=== PATIENT | male | born 1970 | race African-American/Black ===

== ENCOUNTER 2016-04-26 14:06 | Outpatient (RCR) | payer MEDICARE, OTHER ==
[~2016-04-26] VITALS: Ht 193 cm; Wt 122.5 kg
[~2016-04-26 14:06] MED LIST: AUGMENTIN 875-1 EAC1 ORAL; BENAZEPRIL-HCT1 EAC1 ORAL; CARVEDILOL12.5 MG ORAL; DOXYCYCLINE HY100 M6 PO; HYDROCODON-ACE1 EA15 ORAL; LIPITOR10 MG ORAL; MULTIVITAMINS1 EA11 ORAL; NASONEX17 GM NASAL; NORCO 10/3251 EA ORAL; NORVASC5 MG ORAL
== END 2016-05-17 | disposition home or self-care (01) ==
LOC: WCC 14:06
DX: L97.512 Non-pressure chronic ulcer of other part of right foot with fat layer exposed (principal); E11.621 Type 2 diabetes mellitus with foot ulcer; G99.0 Autonomic neuropathy in diseases classified elsewhere; E08.42 Diabetes mellitus due to underlying condition with diabetic polyneuropathy; I10 Essential (primary) hypertension
CPT/HCPCS: G0463 ×2

== ENCOUNTER 2016-11-08 13:51 | Outpatient (RCR) | payer MEDICARE, OTHER | END 2016-11-14 | disposition home or self-care (01) | LOC: WCC 13:51 | DX: L97.512 Non-pressure chronic ulcer of other part of right foot with fat layer exposed (principal); E08.42 Diabetes mellitus due to underlying condition with diabetic polyneuropathy; G99.0 Autonomic neuropathy in diseases classified elsewhere; E11.621 Type 2 diabetes mellitus with foot ulcer; Z89.422 Acquired absence of other left toe(s); Z89.421 Acquired absence of other right toe(s); E11.42 Type 2 diabetes mellitus with diabetic polyneuropathy; L03.115 Cellulitis of right lower limb; Z98.84 Bariatric surgery status; I10 Essential (primary) hypertension | CPT/HCPCS: G0463 ==

== ENCOUNTER 2016-11-15 14:00 | Outpatient (RCR) | payer MEDICARE, OTHER | END 2016-12-15 | disposition home or self-care (01) | LOC: WCC 14:00 | DX: L97.512 Non-pressure chronic ulcer of other part of right foot with fat layer exposed (principal); E08.42 Diabetes mellitus due to underlying condition with diabetic polyneuropathy; G99.0 Autonomic neuropathy in diseases classified elsewhere; E11.621 Type 2 diabetes mellitus with foot ulcer; E11.42 Type 2 diabetes mellitus with diabetic polyneuropathy; Z89.421 Acquired absence of other right toe(s); Z89.422 Acquired absence of other left toe(s); Z98.84 Bariatric surgery status | CPT/HCPCS: 11042; G0463 ==

== ENCOUNTER 2017-01-11 09:00 | Outpatient (RCR) | payer MEDICARE, OTHER | END 2017-01-14 | disposition home or self-care (01) | LOC: WCC 09:00 | DX: L97.512 Non-pressure chronic ulcer of other part of right foot with fat layer exposed (principal); E08.42 Diabetes mellitus due to underlying condition with diabetic polyneuropathy; G99.0 Autonomic neuropathy in diseases classified elsewhere; E11.621 Type 2 diabetes mellitus with foot ulcer; E11.42 Type 2 diabetes mellitus with diabetic polyneuropathy; Z89.421 Acquired absence of other right toe(s); Z89.422 Acquired absence of other left toe(s); Z98.84 Bariatric surgery status; I10 Essential (primary) hypertension; Z80.0 Family history of malignant neoplasm of digestive organs | CPT/HCPCS: 11042 ==

== ENCOUNTER 2017-01-17 14:30 | Outpatient (RCR) | payer MEDICARE, OTHER | END 2017-02-14 | disposition home or self-care (01) | LOC: WCC 14:30 | DX: L97.512 Non-pressure chronic ulcer of other part of right foot with fat layer exposed (principal); E11.621 Type 2 diabetes mellitus with foot ulcer; G99.0 Autonomic neuropathy in diseases classified elsewhere; E08.42 Diabetes mellitus due to underlying condition with diabetic polyneuropathy; Z89.422 Acquired absence of other left toe(s); Z89.421 Acquired absence of other right toe(s); E11.42 Type 2 diabetes mellitus with diabetic polyneuropathy; Z98.84 Bariatric surgery status; I10 Essential (primary) hypertension | CPT/HCPCS: 11043; 87070; 87181; 87205; G0463 ==

== ENCOUNTER 2017-01-27 12:36 | Outpatient (CLI) | payer MEDICARE, OTHER ==
--- NOTE | 2017-01-27 13:56 | Diagnostic Imaging Report ---
Indication: Pain Comparison: None Findings: 3 views of the right foot were obtained. Transmetatarsal amputation noted. Amputation site is unremarkable. There is no soft tissue gas or obvious erosion. Impression: No plain film evidence for osteomyelitis.
== END 2017-01-27 14:36 | disposition home or self-care (01) ==
LOC: RAD 12:36
DX: L08.9 Local infection of the skin and subcutaneous tissue, unspecified (principal)

== ENCOUNTER 2017-05-16 10:40 | Outpatient (CLI) | payer MEDICARE, OTHER ==
--- NOTE | 2017-05-16 11:25 | Diagnostic Imaging Report ---
Indication: Reason For Exam: COUGH Technique: 2 views of the chest Comparison: 10/26/2015. Findings: Lungs and pleural spaces are clear. Heart size is normal. Bones are unremarkable. Calcified granulomatous lymph nodes are again seen in the right paratracheal region. The heart size is normal. Surgical clips are seen in the region of the gastroesophageal junction. Impression: No acute process
== END 2017-05-16 12:40 | disposition home or self-care (01) ==
LOC: RAD 10:40
DX: Z01.812 Encounter for preprocedural laboratory examination (principal); R05 Cough
CPT/HCPCS: 71046

== ENCOUNTER 2017-06-27 13:22 | Outpatient (RCR) | payer MEDICARE, OTHER | END 2017-07-15 | disposition home or self-care (01) | LOC: WCC 13:22 | DX: L97.514 Non-pressure chronic ulcer of other part of right foot with necrosis of bone (principal); L97.522 Non-pressure chronic ulcer of other part of left foot with fat layer exposed; S90.822D Blister (nonthermal), left foot, subsequent encounter; L03.116 Cellulitis of left lower limb; E11.42 Type 2 diabetes mellitus with diabetic polyneuropathy; E08.621 Diabetes mellitus due to underlying condition with foot ulcer; Z98.84 Bariatric surgery status; Z80.0 Family history of malignant neoplasm of digestive organs; Z83.3 Family history of diabetes mellitus | CPT/HCPCS: 87070; 87181; 87205; G0463 ==

== ENCOUNTER 2017-07-04 15:35 | Outpatient (CLI) | payer MEDICARE, OTHER ==
--- NOTE | 2017-07-05 08:58 | Diagnostic Imaging Report ---
Indication: Nonhealing wound right foot stump, history of diabetes Technique: Sagittal, coronal, and axial T 1 fast spin echo and fast spin echo STIR images obtained of the right hindfoot Comparison: 01/14/2016 Findings: Again demonstrated is evidence of prior transmetatarsal amputation. There is diffuse edema of the subcutaneous fat, most pronounced in the region of the stump. The amount of soft tissue edema is actually slightly less extensive than on the prior exam. No focal drainable collection demonstrated. Foci of signal void within the soft tissues of the stomach appear very similar to the previous exam. Stability of this finding over time makes it unlikely that these represent air bubbles; may represent foci of heterotopic ossification or scar tissue There is interim development of high STIR signal within the fifth metatarsal stump. There is more subtle diminished T1 signal within the fifth metatarsal stump. Abnormal STIR signal is seen within the distal aspect of the fourth metatarsal stump, without definite T1 abnormality. However, the amount of increased STIR signal is actually less than what was seen on the previous study. Similarly, there is increased STIR signal within the third metatarsal stump without corresponding T1 abnormality. This was also demonstrated previously and is decreased on the current exam. There is only questionable STIR signal abnormality of the tip of the second metatarsal stump, markedly diminished from the prior exam. No associated T1 signal abnormality. Equivocal peripheral STIR signal abnormality is seen within the first metatarsal stump, in retrospect possibly evident previously but unchanged. No associated T1 signal abnormality demonstrated. Minimal increased STIR signal in the calcaneus below the subtalar joint probably represents stress reaction. Impression: Abnormal T1 and STIR signal in the distal aspect of the fifth metatarsal stump with evidence of surrounding soft tissue cellulitis is suspicious for acute osteomyelitis STIR signal abnormalities of the first, second, third, and fourth metatarsal stumps without T1 signal abnormality are nonspecific, may be reactive secondary to surrounding inflammation versus early/mild acute osteomyelitis. Note, however, that these STIR signal abnormalities have actually diminished since previous study of 01/14/2016, making it less likely that these are due to osteomyelitis Areas of signal void within the soft tissues of the stump could represent gas bubbles, particularly given clinical history of penetrating ulcer. However, these appear very similar to the previous study and therefore more likely represent another process such as scar tissue or heterotopic bone formation No evidence of drainable soft tissue abscess Findings discussed by phone with Dr. Corley at the time of interpretation
== END 2017-07-04 17:35 | disposition home or self-care (01) ==
LOC: MRI 15:35
DX: M86.9 Osteomyelitis, unspecified (principal); E11.9 Type 2 diabetes mellitus without complications
CPT/HCPCS: 73721; 87070; 87181; 87205; G0463

== ENCOUNTER 2017-07-18 11:41 | Outpatient (RCR) | payer MEDICARE, OTHER ==
[~2017-07-18] VITALS: Ht 193 cm; Wt 115.7 kg
[2017-08-11] MEDS ORDERED: Lidocaine 4% Top Soln 50ml TOPIC ONE (12:45)
== END 2017-08-14 | disposition home or self-care (01) ==
LOC: WCC 11:41
DX: L97.514 Non-pressure chronic ulcer of other part of right foot with necrosis of bone (principal); L97.522 Non-pressure chronic ulcer of other part of left foot with fat layer exposed; S90.822D Blister (nonthermal), left foot, subsequent encounter; E11.42 Type 2 diabetes mellitus with diabetic polyneuropathy; E08.621 Diabetes mellitus due to underlying condition with foot ulcer; M86.171 Other acute osteomyelitis, right ankle and foot; I10 Essential (primary) hypertension; Z98.84 Bariatric surgery status
CPT/HCPCS: 11044; G0463

== ENCOUNTER 2017-08-15 10:21 | Outpatient (RCR) | payer MEDICARE, OTHER ==
[~2017-08-15] VITALS: Ht 193 cm; Wt 115.7 kg
[2017-08-24] MEDS ORDERED: Lidocaine 4% Top Soln 50ml TOPIC ONE (16:45)
== END 2017-09-14 | disposition home or self-care (01) ==
LOC: WCC 10:21
DX: L97.514 Non-pressure chronic ulcer of other part of right foot with necrosis of bone (principal); L97.522 Non-pressure chronic ulcer of other part of left foot with fat layer exposed; S90.822D Blister (nonthermal), left foot, subsequent encounter; E11.42 Type 2 diabetes mellitus with diabetic polyneuropathy; E08.621 Diabetes mellitus due to underlying condition with foot ulcer; M86.171 Other acute osteomyelitis, right ankle and foot; X58.XXXD Exposure to other specified factors, subsequent encounter; L97.515 Non-pressure chronic ulcer of other part of right foot with muscle involvement without evidence of necrosis; Z98.84 Bariatric surgery status; E11.9 Type 2 diabetes mellitus without complications; I10 Essential (primary) hypertension
CPT/HCPCS: G0463 ×4

== ENCOUNTER 2017-11-20 13:01 | Outpatient (CLI) | payer MEDICARE, OTHER ==
--- NOTE | 2017-11-20 15:51 | Diagnostic Imaging Report ---
Indication: Cough Technique: One view of the chest Comparison: 05/16/2017 Findings: Lungs and pleural spaces are clear. Heart size is normal. Surgical clips are seen in the epigastric region. Calcifications, likely granulomatous lymph nodes, are seen in the right side of the upper mediastinum. No significant interim change Impression: No acute process
== END 2017-11-20 15:01 | disposition home or self-care (01) ==
LOC: RAD 13:01
DX: Z01.812 Encounter for preprocedural laboratory examination (principal); R05 Cough
CPT/HCPCS: 71046

== ENCOUNTER 2017-12-19 14:10 | Outpatient (RCR) | payer MEDICARE, OTHER | END 2018-01-14 | disposition home or self-care (01) | LOC: WCC 14:10 | DX: L97.512 Non-pressure chronic ulcer of other part of right foot with fat layer exposed (principal); E11.621 Type 2 diabetes mellitus with foot ulcer; G99.0 Autonomic neuropathy in diseases classified elsewhere; E08.42 Diabetes mellitus due to underlying condition with diabetic polyneuropathy; I10 Essential (primary) hypertension; Z98.84 Bariatric surgery status | CPT/HCPCS: 11043; 11046; 87070; 87181; 87205 ==

== ENCOUNTER 2018-01-15 12:44 | Outpatient (RCR) | payer MEDICARE, OTHER | END 2018-02-14 | disposition home or self-care (01) | LOC: WCC 12:44 | DX: L97.512 Non-pressure chronic ulcer of other part of right foot with fat layer exposed (principal); E11.621 Type 2 diabetes mellitus with foot ulcer; G99.0 Autonomic neuropathy in diseases classified elsewhere; E08.42 Diabetes mellitus due to underlying condition with diabetic polyneuropathy; Z98.84 Bariatric surgery status; I10 Essential (primary) hypertension | CPT/HCPCS: 11042; 11043; 11045; 87070; 87181; 87205 ==

== ENCOUNTER 2018-02-20 12:43 | Outpatient (RCR) | payer MEDICARE, OTHER | END 2018-03-16 | disposition home or self-care (01) | LOC: WCC 12:43 | DX: L97.512 Non-pressure chronic ulcer of other part of right foot with fat layer exposed (principal); E08.42 Diabetes mellitus due to underlying condition with diabetic polyneuropathy; G99.0 Autonomic neuropathy in diseases classified elsewhere; E11.621 Type 2 diabetes mellitus with foot ulcer; Z89.422 Acquired absence of other left toe(s); Z89.421 Acquired absence of other right toe(s); E11.42 Type 2 diabetes mellitus with diabetic polyneuropathy; Z98.84 Bariatric surgery status; E11.9 Type 2 diabetes mellitus without complications; I10 Essential (primary) hypertension | CPT/HCPCS: G0463 ==

== ENCOUNTER 2018-05-08 22:04 | Emergency (ER) | payer MEDICARE, OTHER ==
[~2018-05-08] VITALS: Ht 193 cm; Wt 113.4 kg
--- NOTE | 2018-05-08 22:35 | NUR ---
ED Nurse Note: x-rays taken at bedside.
[2018-05-08] MEDS ORDERED: Bacitracin Oint UD TOPIC ONE (22:45)
--- NOTE | 2018-05-08 22:47 | NUR ---
ED Nurse Note: Patient walk in c/o right foot pain following slip and fall in shower at 1945. Patient AOx4, VSS, ambulatory with steady gait, no s/s of acute distress noted at this time. Patient has all 5 toes amputated from right foot due to diabetes. Patient has wound on bottom of right foot r/t diabetes. Patient reports 7/10 pain. Patient seen by ROBERTOD at bedside.
[2018-05-08] MEDS ORDERED: HYDROcodone/Acetamin 5/325 tab ONE (23:13)
[2018-05-08] MEDS ORDERED: HYDROcodone/Acetamin 5/325 tab ORAL ONE (23:15)
--- NOTE | 2018-05-08 23:15 | NUR ---
ED Nurse Note: Bacitracin and bandages applied to wound on right foot.
[2018-05-08] MEDS ORDERED: CIPROFLOXACIN500 M2 ORAL (23:20)
--- NOTE | 2018-05-08 23:20 | Emergency Room Report ---
History of Present Illness General Chief Complaint: Lower Extremity Injury Source: Patient Present Illness HPI Is a 48-year-old male with a history of diabetes with a trans-metatarsal indication of his right foot. He has low nonhealing ulcer. It was doing better until tonight. He tripped and kicked his foot against the wall. There is some bleeding from the wound. Pain is 8 out of 10. Worse with walking. No other injury. Did not pass out. Allergies: Coded Allergies: No Known Allergies (Verified , 08/19/14) Patient History Past Medical History: see triage record, old chart reviewed, DM, HTN Past Surgical History: other Pertinent Family History: none Social History: Denies: smoking Immunizations: other Reviewed Nursing Documentation: PMH: Agreed; PSxH: Agreed Nursing Documentation-PMH Hx Cardiac Problems: Yes Hx Hypertension: Yes Hx Diabetes: Yes - history Hx Cancer: No Hx Gastrointestinal Problems: Yes - gastric bypass 2010 Hx Neurological Problems: No Review of Systems Eye: Denies: eye pain, blurred vision ENT: Denies: ear pain, nose congestion, throat swelling Respiratory: Denies: cough, shortness of breath Cardiovascular: Denies: chest pain, palpitations Gastrointestinal: Denies: abdominal pain, diarrhea, nausea, vomiting Musculoskeletal: Reports: joint pain; Denies: back pain Skin: Denies: rash Neurological: Denies: headache, numbness Endocrine: Denies: increased thirst, increased urine Hematologic/Lymphatic: Denies: easy bruising All Other Systems: negative except mentioned in HPI Physical Exam Vital Signs Date Time Temp Pulse Resp B/P (MAP) Pulse Ox O2 Delivery O2 Flow Rate FiO2 05/08/18 22:14 97.7 80 16 162/98 99 Room Air vitals with high blood pressure Sp02 EP Interpretation: reviewed, normal General Appearance: well appearing, no apparent distress, alert Head: normocephalic, atraumatic Eyes: bilateral eye PERRL, bilateral eye EOMI ENT: hearing grossly normal, normal pharynx Neck: full range of motion, supple, no meningismus Respiratory: chest non-tender, lungs clear, normal breath sounds Cardiovascular #1: regular rate, rhythm, no murmur Gastrointestinal: normal bowel sounds, non tender, no mass, no organomegaly, no bruit, non-distended Musculoskeletal: back normal, gait/station normal, normal range of motion, other - Right foot: There is some skin breakdown of the diabetic ulcer. No drainage. Neurologic: alert, oriented x3 Psychiatric: mood/affect normal Skin: warm/dry Medical Decision Making Diagnostic Impression: Primary Impression: Contusion of foot, right Qualified Codes: S90.31XA - Contusion of right foot, initial encounter ER Course Patient with a contusion to his right foot in a slow healing ulcer. No evidence of infection. He does have increased risk for infection. We'll treat with antibiotics. We'll discharge home. Other X-Ray Diagnostic Results Other X-Ray Diagnostic Results : X-Ray ordered: Right foot x-rays # of Views/Limited Vs Complete: 3 View Indication: Pain EP Interpretation: Yes Interpretation: no dislocation, no soft tissue swelling, no fractures Impression: No acute disease Electronically Signed by: Rodo Ruiz MD Last Vital Signs Date Time Temp Pulse Resp B/P (MAP) Pulse Ox O2 Delivery O2 Flow Rate FiO2 05/08/18 22:14 97.7 80 16 162/98 99 Room Air Status: improved Disposition: HOME, SELF-CARE Condition: Stable Scripts Ciprofloxacin Hcl* (CIPROFLOXACIN HCL*) 500 Mg Tablet 500 MG ORAL Q12H, #14 TAB 0 Refills Prov: Rodo Ruiz MD 05/08/18 Patient Instructions: Foot Contusion Additional Instructions: Keep foot clean. Apply antibiotic ointment. Follow-up with your doctor in 7 days. Return if worse. Rodo Ruiz MD May 08, 2018 23:20
[2018-05-08 23:29] VITALS: BP 162/98
--- NOTE | 2018-05-08 23:31 | NUR ---
ED Nurse Note: Patient cleared for discharge by EVA. Patient AOx4, VSS, ambulatory with steady gait, no s/s of acute distress noted at this time. patient provided with discharge instructions and medication prescriptions. patient verbalized understanding. patient instructed to follow up with PCP in 1x week. Patient took all personal belongings with him. Patient has mother at bedside to take him home.
--- NOTE | 2018-05-09 10:47 | Diagnostic Imaging Report ---
Indication: Foot pain Technique: 3 views right foot Comparison: 01/27/2017 Findings: Again demonstrated is prior transmetatarsal amputation. The amputation margins appear clean and intact. There is slightly increased heterotopic new bone formation adjacent to the fourth and fifth metatarsal stumps. No definite osseous erosions, osteolytic lesion, or unusual periosteal reaction demonstrated. There is a small plantar spur Impression: Postsurgical changes, as described, stable since 01/27/2017. No definite acute process
== END 2018-05-08 23:33 | disposition home or self-care (01) ==
LOC: EMR 22:58
DX: S90.31XA Contusion of right foot, initial encounter (principal); W22.01XA Walked into wall, initial encounter; Y92.89 Other specified places as the place of occurrence of the external cause; E11.621 Type 2 diabetes mellitus with foot ulcer; I10 Essential (primary) hypertension
CPT/HCPCS: 99283

== ENCOUNTER 2018-06-12 14:04 | Outpatient (RCR) | payer MEDICARE, OTHER ==
[~2018-06-12 14:04] MED LIST changes: +CIPROFLOXACIN500 M2 ORAL
== END 2018-06-14 | disposition home or self-care (01) ==
LOC: WCC 14:04
DX: L97.512 Non-pressure chronic ulcer of other part of right foot with fat layer exposed (principal); E08.42 Diabetes mellitus due to underlying condition with diabetic polyneuropathy; G99.0 Autonomic neuropathy in diseases classified elsewhere; E11.621 Type 2 diabetes mellitus with foot ulcer; Z89.422 Acquired absence of other left toe(s); E11.42 Type 2 diabetes mellitus with diabetic polyneuropathy; I10 Essential (primary) hypertension; Z98.84 Bariatric surgery status
CPT/HCPCS: 11043; 11046

== ENCOUNTER 2018-06-12 15:15 | Outpatient (CLI) | payer MEDICARE, OTHER ==
--- NOTE | 2018-06-12 16:48 | Diagnostic Imaging Report ---
Indication: Ankle pain Technique: 3 views of the right ankle Comparison: none Findings: Patient is status post proximal transmetatarsal amputation. There is considerable chronic appearing irregularity of all 5 metatarsal stumps. No acute fractures. No dislocations. There is a small plantar spur. There are proliferative changes of the medial malleolus. Bones are somewhat osteoporotic. No definite osseous erosions or other findings to suggest acute osteomyelitis. There is considerable proliferative change of the tibial and fibular cortices along the interosseous membrane Impression: Postsurgical changes, as described No definite acute bony trauma No definite plain radiographic findings to suggest acute osseous myelitis. Note, however, limited sensitivity of plain radiographs for such. Consider MRI or three-phase bone scan if there is high clinical suspicion
--- NOTE | 2018-06-12 16:50 | Diagnostic Imaging Report ---
Indication: Reason For Exam: PAIN Technique: 3 views foot Comparison: 05/08/2018 Findings: Again demonstrated is evidence of prior transmetatarsal amputation. There is stable irregularity of the metatarsal stumps, particularly the fourth and fifth. Amputation margins appear clean. No definite ulcerations. No focal osteolytic lesions, unusual periosteal reaction, or osseous erosions are demonstrated. The joint spaces are preserved. No acute fractures or dislocations. Findings are unchanged Impression: Postsurgical changes, as described No plain radiographic findings to suggest acute osteomyelitis. Note, however, limited sensitivity of plain radiographs for such. Consider MRI and/or 3 phase bone scan for further evaluation if there is high clinical suspicion
== END 2018-06-12 17:15 | disposition home or self-care (01) ==
LOC: RAD 15:15
DX: M25.571 Pain in right ankle and joints of right foot (principal); R60.0 Localized edema

== ENCOUNTER 2018-08-08 09:30 | Emergency (ER) | payer MEDICARE, OTHER ==
[~2018-08-08] VITALS: Ht 193 cm; Wt 108.9 kg
--- NOTE | 2018-08-08 09:40 | NUR ---
ED Nurse Note: patient walked into ED coming from a wound clinic near ED, patient had a seizure activity for 4-5 minutes according to the staff member at the wound clinic patient has no history of seizure. patient denies pain at this time. patient is alert awake x4 neurologically intact. patient reports he remembers what happenend. ambulatory with steady gait, breathing unlabored and even.
[2018-08-08 10:00] VITALS: BP 142/81
--- NOTE | 2018-08-08 10:16 | NUR ---
ED Nurse Note: patient went to CT
--- NOTE | 2018-08-08 10:21 | NUR ---
ED Nurse Note: patient came back from CT
[2018-08-08 10:28] LABS: BASOPHILS % (AUTO) 1.2 % (0.0-2.0); EOSINOPHILS % (AUTO) 2.3 % (0.0-3.0); HEMATOCRIT 32.4 % (42.0-52.0); HEMOGLOBIN 9.9 G/DL (14.2-18.0); LYMPHOCYTES % (AUTO) 21.4 % (20.0-45.0); MEAN CORPUSCULAR VOLUME 85 FL (80-99); MONOCYTES % (AUTO) 10.8 % (1.0-10.0); NEUTROPHILS % (AUTO) 64.3 % (45.0-75.0); PLATELET COUNT 247 K/UL (150-450); RED BLOOD COUNT 3.82 M/UL (4.70-6.10); RED CELL DISTRIBUTION WIDTH 14.1 % (11.6-14.8); WHITE BLOOD COUNT 4.3 K/UL (4.8-10.8)
--- NOTE | 2018-08-08 10:39 | Diagnostic Imaging Report ---
Indications: Seizure Technique: Spiral acquisitions obtained through the brain. Angled axial and coronal 5 x 5 mm slices were reconstructed. Total dose length product 1376.09 mGycm. CTDI vol(s) 70.38 mGy. Dose reduction achieved using automated exposure control Comparison: None. Findings: No acute intracranial hemorrhage or edema, mass effect, nor midline shift. Normal kumar-white differentiation. Normal-sized ventricles and extra axial CSF spaces. Visualized orbits and sinuses are unremarkable. The mastoids are clear. Intact calvarium Impression: Negative The CT scanner at [facility] is accredited by the [employer] and the scans are performed using protocols designed to limit radiation exposure to as low as reasonably achievable to attain images of sufficient resolution adequate for diagnostic evaluation.
--- NOTE | 2018-08-08 10:40 | Emergency Room Report ---
History of Present Illness General Chief Complaint: Seizure Source: Patient Present Illness HPI 48-year-old male presents ED for evaluation. Patient states that he was at the hyperbaric Center here at [facility] getting treatment when he started to feel weak and faint. States that his sessions were normally 2 hours long. States he was very hot in the hyperbaric chamber so he started to feel nauseous and dizzy. Staff at facility sent patient here is a thought he had a seizure. Patient denies any loss of consciousness. Denies any tongue biting. Denies any foaming at the mouth or incontinence. No history of seizures. States he feels better at this time. Currently getting daily hyperbaric treatments for a wound on his right foot. Status post TMA. Denies any pain to the foot. No other aggravating relieving factors. Denies any other associated symptoms Allergies: Coded Allergies: SHELLFISH DERIVED (Verified Allergy, Unknown, 08/08/18) Patient History Past Medical History: DM, HTN Past Surgical History: other - gastric bypass, TMA Social History: Denies: smoking, alcohol use, drug use Immunizations: UTD Reviewed Nursing Documentation: PMH: Agreed; PSxH: Agreed Nursing Documentation-PMH Hx Cardiac Problems: Yes Hx Hypertension: Yes Hx Diabetes: Yes Hx Cancer: No Hx Gastrointestinal Problems: Yes - gastric bypass 2010 Hx Neurological Problems: No Review of Systems All Other Systems: negative except mentioned in HPI Physical Exam Vital Signs Date Time Temp Pulse Resp B/P (MAP) Pulse Ox O2 Delivery O2 Flow Rate FiO2 08/08/18 09:34 98.6 82 16 148/82 100 Room Air Sp02 EP Interpretation: reviewed, normal General Appearance: no apparent distress, alert, GCS 15, non-toxic Head: normocephalic, atraumatic Eyes: bilateral eye normal inspection, bilateral eye PERRL ENT: hearing grossly normal, normal pharynx, no angioedema, normal voice Neck: full range of motion, supple/symm/no masses Respiratory: chest non-tender, lungs clear, normal breath sounds, speaking full sentences Cardiovascular #1: regular rate, rhythm, no edema Cardiovascular #2: 2+ carotid (R), 2+ carotid (L), 2+ radial (R), 2+ radial (L) , 2+ dorsalis pedis (R), 2+ dorsalis pedis (L) Gastrointestinal: normal bowel sounds, non tender, soft, non-distended, no guarding, no rebound Rectal: deferred Genitourinary: normal inspection, no CVA tenderness Musculoskeletal: back normal, gait/station normal, normal range of motion, other - s/p TMA Right foot. in dressing Neurologic: alert, oriented x3, responsive, motor strength/tone normal, sensory intact, speech normal Psychiatric: judgement/insight normal, memory normal, mood/affect normal, no suicidal/homicidal ideation Reflexes: 3+ bicep (R), 3+ bicep (L), 3+ tricep (R), 3+ tricep (L), 3+ knee (R) , 3+ knee (L) Skin: normal color, no rash, warm/dry, well hydrated, other - wound to R foot. s/p TMA Lymphatic: no adenopathy Medical Decision Making Diagnostic Impression: Primary Impression: Altered level of consciousness Additional Impressions: Diabetic foot infection Renal insufficiency ER Course Hospital Course 48-year-old male presents with altered level of consciousness during hyperbaric chamber treatment. Questionable seizure Differential diagnosis includes- breakthrough seizure, alcohol abuse, noncompliance with medication Clinical course Patient placed on stretcher. Initial history and physical I ordered labs, IV fluids, CT brain Labs- BUN/Cr elevated, no leukocytosis, hemoglobin/hematocrit stable. trop negative EKG - NSR, no acute ischemic changes interpreted by me CT Brain ok discussed findings with patient. I do not suspect seizure as patient never lost consciousness. No incontinence, no tongue trauma. Patient did state that hyperbaric chamber appeared very hot and he felt suffocated. Discussed findings with PMD Dr. Medina; he agreed the patient to be safely discharged to home. DMV forms admitted diagnosis - ALOC, diabetic foot infection, renal insufficiency stable and discharged to home. Followup with PMD. Return to ED if symptoms recur or worsen Labs Test 08/08/18 10:00 White Blood Count 4.3 K/UL (4.8-10.8) Red Blood Count 3.82 M/UL (4.70-6.10) Hemoglobin 9.9 G/DL (14.2-18.0) Hematocrit 32.4 % (42.0-52.0) Mean Corpuscular Volume 85 FL (80-99) Mean Corpuscular Hemoglobin 26.0 PG (27.0-31.0) Mean Corpuscular Hemoglobin Concent 30.7 G/DL (32.0-36.0) Red Cell Distribution Width 14.1 % (11.6-14.8) Platelet Count 247 K/UL (150-450) Mean Platelet Volume 4.7 FL (6.5-10.1) Neutrophils (%) (Auto) 64.3 % (45.0-75.0) Lymphocytes (%) (Auto) 21.4 % (20.0-45.0) Monocytes (%) (Auto) 10.8 % (1.0-10.0) Eosinophils (%) (Auto) 2.3 % (0.0-3.0) Basophils (%) (Auto) 1.2 % (0.0-2.0) Sodium Level 137 MMOL/L (136-145) Potassium Level 5.0 MMOL/L (3.5-5.1) Chloride Level 108 MMOL/L (98-107) Carbon Dioxide Level 20 MMOL/L (21-32) Anion Gap 9 mmol/L (5-15) Blood Urea Nitrogen 28 mg/dL (7-18) Creatinine 2.2 MG/DL (0.55-1.30) Estimat Glomerular Filtration Rate 39.3 mL/min (>60) Glucose Level 111 MG/DL (74-106) Calcium Level 8.4 MG/DL (8.5-10.1) Total Bilirubin 0.2 MG/DL (0.2-1.0) Aspartate Amino Transf (AST/SGOT) 66 U/L (15-37) Alanine Aminotransferase (ALT/SGPT) 29 U/L (12-78) Alkaline Phosphatase 158 U/L (46-116) Troponin I 0.000 ng/mL (0.000-0.056) Total Protein 7.1 G/DL (6.4-8.2) Albumin 2.5 G/DL (3.4-5.0) Globulin 4.6 g/dL Albumin/Globulin Ratio 0.5 (1.0-2.7) Salicylates Level 1.9 ug/mL (2.8-20) Acetaminophen Level 16 MCG/ML (10-30) Serum Alcohol < 3 mg/dL EKG Diagnostic Results Rate: normal Rhythm: NSR ST Segments: no acute changes ASA given to the pt in ED: No Rhythm Strip Diag. Results EP Interpretation: yes Rhythm: NSR, no PVC's, no ectopy CT/MRI/US Diagnostic Results CT/MRI/US Diagnostic Results : Imaging Test Ordered: CT Head Impression no acute process Last Vital Signs Date Time Temp Pulse Resp B/P (MAP) Pulse Ox O2 Delivery O2 Flow Rate FiO2 08/08/18 10:11 84 12 Room Air 08/08/18 10:00 98.6 142/81 99 Status: improved Disposition: HOME, SELF-CARE Condition: Stable Referrals: Humberto Medina MD (PCP) Lazarus Spear MD Aug 08, 2018 10:40
[2018-08-08 10:51] LABS: ANION GAP 9 mmol/L (5-15); BLOOD UREA NITROGEN 28 mg/dL (7-18); CALCIUM 8.4 MG/DL (8.5-10.1); CARBON DIOXIDE 20 MMOL/L (21-32); CHLORIDE 108 MMOL/L (98-107); CREATININE 2.2 MG/DL (0.55-1.30); SODIUM 137 MMOL/L (136-145)
[2018-08-08 10:55] LABS: ALANINE AMINOTRANSFERASE 29 U/L (12-78); ALBUMIN 2.5 G/DL (3.4-5.0); ALBUMIN/GLOBULIN RATIO 0.5 (1.0-2.7); ALKALINE PHOSPHATASE 158 U/L (46-116); ASPARTATE AMINO TRANSFERASE 66 U/L (15-37); BILIRUBIN,TOTAL 0.2 MG/DL (0.2-1.0)
--- NOTE | 2018-08-08 12:10 | NUR ---
ED Nurse Note: Patient unable to provide urine sample at this time, ok to discharge
[2018-08-08 12:27] VITALS: BP 138/72
[2018-08-08 12:31] VITALS: BP 138/72
--- NOTE | 2018-08-08 12:31 | NUR ---
ER DISCHARGE NOTE: Patient is cleared to be discharged per ERMD Dr Spear, pt is aox4, on room air, with stable vital signs. pt was given dc and prescription instructions, pt was able to verbalize understanding, pt id band removed without complications. patient's central lined locked swabcap. pt is able to ambulate with steady gait. pt took all belongings.
--- NOTE | 2018-08-10 22:03 | Cardiology Report ---
APPROVED REPORT EKG Measurement Heart [id number] Normal sinus rhythm Minimal voltage criteria for LVH, may be normal variant Borderline ECG
== END 2018-08-08 12:30 | disposition home or self-care (01) ==
LOC: EMR 09:55
DX: R41.82 Altered mental status, unspecified (principal); R53.1 Weakness; Z91.013 Allergy to seafood; E11.9 Type 2 diabetes mellitus without complications; I10 Essential (primary) hypertension; Z98.84 Bariatric surgery status; S91.301A Unspecified open wound, right foot, initial encounter; X58.XXXA Exposure to other specified factors, initial encounter; Y92.9 Unspecified place or not applicable; N28.9 Disorder of kidney and ureter, unspecified
CPT/HCPCS: 70450; 80053; 82962; 84484; 85025; 93005; 96360; 99284; G0480; 80329

== ENCOUNTER 2018-08-15 08:17 | Outpatient (RCR) | payer MEDICARE, OTHER | END 2018-09-14 | disposition home or self-care (01) | LOC: WCC 08:17 | DX: E11.621 Type 2 diabetes mellitus with foot ulcer (principal); E08.42 Diabetes mellitus due to underlying condition with diabetic polyneuropathy; G99.0 Autonomic neuropathy in diseases classified elsewhere; Z89.422 Acquired absence of other left toe(s); E11.42 Type 2 diabetes mellitus with diabetic polyneuropathy; L97.515 Non-pressure chronic ulcer of other part of right foot with muscle involvement without evidence of necrosis; Z98.84 Bariatric surgery status; Z89.421 Acquired absence of other right toe(s); Z79.899 Other long term (current) drug therapy | CPT/HCPCS: 82962; G0277; G0463 ==

== ENCOUNTER 2018-10-02 13:34 | Outpatient (RCR) | payer MEDICARE, OTHER | END 2018-10-14 | disposition home or self-care (01) | LOC: WCC 13:34 | DX: E08.42 Diabetes mellitus due to underlying condition with diabetic polyneuropathy (principal); E11.621 Type 2 diabetes mellitus with foot ulcer; L97.512 Non-pressure chronic ulcer of other part of right foot with fat layer exposed; E11.42 Type 2 diabetes mellitus with diabetic polyneuropathy; G99.0 Autonomic neuropathy in diseases classified elsewhere; Z89.421 Acquired absence of other right toe(s); Z98.84 Bariatric surgery status; E66.01 Morbid (severe) obesity due to excess calories; I10 Essential (primary) hypertension; Z89.422 Acquired absence of other left toe(s) | CPT/HCPCS: G0463 ×2 ==

== ENCOUNTER 2018-10-16 13:29 | Outpatient (RCR) | payer MEDICARE, OTHER | END 2018-11-14 | disposition home or self-care (01) | LOC: WCC 13:29 | DX: L97.512 Non-pressure chronic ulcer of other part of right foot with fat layer exposed (principal); E11.621 Type 2 diabetes mellitus with foot ulcer; E08.42 Diabetes mellitus due to underlying condition with diabetic polyneuropathy; E11.42 Type 2 diabetes mellitus with diabetic polyneuropathy; G99.0 Autonomic neuropathy in diseases classified elsewhere; Z89.421 Acquired absence of other right toe(s); Z98.84 Bariatric surgery status; I10 Essential (primary) hypertension; Z79.899 Other long term (current) drug therapy | CPT/HCPCS: G0463 ==

== ENCOUNTER 2019-03-12 13:49 | Outpatient (RCR) | payer MEDICARE, OTHER | END 2019-03-16 | disposition home or self-care (01) | LOC: WCC 13:49 | DX: L97.512 Non-pressure chronic ulcer of other part of right foot with fat layer exposed (principal); E11.621 Type 2 diabetes mellitus with foot ulcer; E11.42 Type 2 diabetes mellitus with diabetic polyneuropathy; E08.42 Diabetes mellitus due to underlying condition with diabetic polyneuropathy; G99.0 Autonomic neuropathy in diseases classified elsewhere; I10 Essential (primary) hypertension; Z98.84 Bariatric surgery status | CPT/HCPCS: G0463 ==

== ENCOUNTER 2019-04-30 13:29 | Outpatient (RCR) | payer MEDICARE, OTHER ==
[~2019-04-30] VITALS: Ht 188 cm; Wt 108.9 kg
[2019-05-09] MEDS ORDERED: Silver Nitrate Stick TOPIC ONE (10:30)
== END 2019-05-17 | disposition home or self-care (01) ==
LOC: WCC 13:29
DX: L97.512 Non-pressure chronic ulcer of other part of right foot with fat layer exposed (principal); E11.621 Type 2 diabetes mellitus with foot ulcer; E11.42 Type 2 diabetes mellitus with diabetic polyneuropathy; E08.42 Diabetes mellitus due to underlying condition with diabetic polyneuropathy; G99.0 Autonomic neuropathy in diseases classified elsewhere; E11.9 Type 2 diabetes mellitus without complications; I10 Essential (primary) hypertension; Z98.84 Bariatric surgery status; E66.01 Morbid (severe) obesity due to excess calories
CPT/HCPCS: 11043; G0463

== ENCOUNTER 2019-05-03 15:48 | Emergency (ER) | payer MEDICARE, OTHER ==
[~2019-05-03] VITALS: Ht 193 cm; Wt 108.9 kg
[2019-05-03 16:05] VITALS: BP 155/93
--- NOTE | 2019-05-03 16:10 | NUR ---
ED Nurse Note: Patient came to ED from home stating the home health nurse kiana cares for his right foot amputation stated it was gushing blood when she last changed the dressing. AxO x 4. Blood and urine collected and sent to lab.
[2019-05-03] MEDS ORDERED: Surgicel 4in x 8in TOPIC ONE (16:15)
[2019-05-03 16:34] LABS: APPEARANCE,URINE CLEAR; BILIRUBIN, URINE NEGATIVE (NEGATIVE); COLOR,URINE PALE YELLOW; GLUCOSE, URINE (UA) NEGATIVE (NEGATIVE); KETONES,URINE 1+ (NEGATIVE); LEUKOCYTE ESTERASE ,URINE NEGATIVE (NEGATIVE); NITRITE,URINE NEGATIVE (NEGATIVE); PH,URINE 5 (4.5-8.0); PROTEIN,URINE 4+ (NEGATIVE); UROBILINOGEN,URINE NORMAL MG/DL (0.0-1.0)
--- NOTE | 2019-05-03 16:51 | Diagnostic Imaging Report ---
. Indication: Shortness of breath Technique: One view of the chest Comparison: A 10/04/2017 Findings: Interim placement of a right jugular approach tunneled central venous catheter. Lungs and pleural spaces are clear. Granulomatous mediastinal and right hilar lymph nodes are again demonstrated. The heart size is normal. Impression: No acute process Evidence of old granulomatous disease Tunneled smallbore right jugular central venous catheter noted
--- NOTE | 2019-05-03 16:59 | Diagnostic Imaging Report ---
Indication: Right ankle pain Technique: 3 views of the right ankle Comparison: none Findings: Patient is status post amputation at the level of the tarsometatarsal joints. The bony amputation margins appear clean. However, considerable soft tissue gas is seen in the soft tissues, particularly at the lateral plantar aspect. There are vascular calcifications. Impression: Postsurgical changes, as described Gas within the soft tissues, raising concern for infection with a gas-forming organism.
[2019-05-03 17:12] LABS: BASOPHILS % (AUTO) 2.3 % (0.0-2.0); EOSINOPHILS % (AUTO) 2.2 % (0.0-3.0); HEMATOCRIT 32.7 % (42.0-52.0); HEMOGLOBIN 10.4 G/DL (14.2-18.0); LYMPHOCYTES % (AUTO) 33.6 % (20.0-45.0); MEAN CORPUSCULAR VOLUME 87 FL (80-99); MONOCYTES % (AUTO) 5.9 % (1.0-10.0); NEUTROPHILS % (AUTO) 56.1 % (45.0-75.0); PLATELET COUNT 372 K/UL (150-450); RED BLOOD COUNT 3.78 M/UL (4.70-6.10); WHITE BLOOD COUNT 6.8 K/UL (4.8-10.8)
[2019-05-03 17:15] LABS: ANION GAP 12 mmol/L (5-15); BLOOD UREA NITROGEN 23 mg/dL (7-18); CARBON DIOXIDE 16 MMOL/L (21-32); CHLORIDE 111 MMOL/L (98-107); CREATININE 2.9 MG/DL (0.55-1.30); POTASSIUM 5.3 MMOL/L (3.5-5.1); SODIUM 139 MMOL/L (136-145)
[2019-05-03 17:17] LABS: INR 0.9 (0.9-1.1)
[2019-05-03 17:19] LABS: ALANINE AMINOTRANSFERASE 15 U/L (12-78); ALBUMIN 2.9 G/DL (3.4-5.0); ALBUMIN/GLOBULIN RATIO 0.6 (1.0-2.7); ALKALINE PHOSPHATASE 132 U/L (46-116); ASPARTATE AMINO TRANSFERASE 20 U/L (15-37); BILIRUBIN,TOTAL 0.1 MG/DL (0.2-1.0)
[2019-05-03 17:55] VITALS: BP 155/93
--- NOTE | 2019-05-03 17:55 | NUR ---
ED Nurse Note: Patient cleared for DC by Olga VANN. Patient AxO x 4, no s/s of acute distress. ID band removed. Patient walks with steady gait, took all belongings.
--- NOTE | 2019-05-03 17:55 | Emergency Room Report ---
History of Present Illness General Chief Complaint: Skin Rash/Abscess Source: Patient Present Illness HPI 49-year-old male with history of chronic kidney disease, chronic right foot ulcer status post amputation here complaining of bleeding from foot ulcer that started today as in-home nurse was changing the dressing. Patient foot is wrapped in bandage and obvious bleeding noted. Denies being on any blood thinners. Patient has a central line attached reports that he gets daily dose of antibiotic. His highway engineering teacher is Dr. Corley, and reports that he has a nursing home manager that he follows up with him and he may need to start dialysis soon. Patient complains of a 3 out of 10 pain at this time. Cannot take any oral medication. Denies any lightheadedness, chest pain, shortness of breath, palpitation other associated symptoms. After unwrapping of the ulcer obvious chronic ulceration noted however no bleeding noted. Bleeding appears to be non- arterial. Allergies: Coded Allergies: SHELLFISH DERIVED (Verified Allergy, Unknown, 08/08/18) Patient History Past Medical History: see triage record Past Surgical History: unable to obtain Pertinent Family History: none Immunizations: UTD Reviewed Nursing Documentation: PMH: Agreed; PSxH: Agreed Nursing Documentation-PMH Past Medical History: No History, Except For Hx Cardiac Problems: Yes Hx Hypertension: Yes Hx Diabetes: Yes Hx Cancer: No Hx Gastrointestinal Problems: Yes - gastric bypass 2010 Hx Neurological Problems: No Review of Systems All Other Systems: negative except mentioned in HPI Physical Exam Vital Signs Date Time Temp Pulse Resp B/P (MAP) Pulse Ox O2 Delivery O2 Flow Rate FiO2 05/03/19 15:54 98.1 92 17 155/93 (113) 99 Room Air Sp02 EP Interpretation: reviewed, normal General Appearance: no apparent distress, alert, GCS 15, non-toxic Head: normocephalic, atraumatic Eyes: bilateral eye normal inspection, bilateral eye PERRL ENT: hearing grossly normal, normal pharynx, no angioedema, normal voice Neck: full range of motion, supple, thyroid normal, supple/symm/no masses Respiratory: chest non-tender, lungs clear, normal breath sounds, no rhonchi, no retraction, no wheezing, speaking full sentences Cardiovascular #1: regular rate, rhythm, no edema, no murmur, normal capillary refill Cardiovascular #2: 2+ dorsalis pedis (R), 2+ dorsalis pedis (L) Gastrointestinal: normal bowel sounds, non tender, soft, non-distended, no guarding, no rebound Rectal: deferred Genitourinary: no CVA tenderness Musculoskeletal: back normal, other - right foot stump bleeding from ulcer Neurologic: alert, motor strength/tone normal, oriented x3, sensory intact, responsive, speech normal Psychiatric: judgement/insight normal, memory normal, mood/affect normal, no suicidal/homicidal ideation Skin: no rash, other - bleeding foot ulcer Lymphatic: no adenopathy Medical Decision Making PA Attestation All diagnoses and treatment plans were reviewed and discussed with my supervising physician Dr. Welsh Diagnostic Impression: Primary Impression: Bleeding ulcer Additional Impressions: Chronic osteomyelitis CKD (chronic kidney disease) ER Course 49-year-old male with history of chronic kidney disease, chronic right foot ulcer status post amputation here complaining of bleeding from foot ulcer that started today as in-home nurse was changing the dressing. Patient foot is wrapped in bandage and obvious bleeding noted. Denies being on any blood thinners. Patient has a central line attached reports that he gets daily dose of antibiotic. His highway engineering teacher is Dr. Corley, and reports that he has a nursing home manager that he follows up with him and he may need to start dialysis soon. Patient complains of a 3 out of 10 pain at this time. Cannot take any oral medication. Denies any lightheadedness, chest pain, shortness of breath, palpitation other associated symptoms. After unwrapping of the ulcer obvious chronic ulceration noted however no bleeding noted. Bleeding appears to be non- arterial. Ddx considered but are not limited to : Arterial line bleeding from foot ulcer, infected foot ulcer, osteomyelitis acute, osteomyelitis chronic, cellulitis,, superficial infection, abscess Vital signs: are WNL, pt. is afebrile H&PE are most consistent with: Superficial non-arterial bleeding ulcer, chronic osteomyelitis, CKD ORDERS: Sepsis work-up, x-ray right foot stump ED INTERVENTIONS: None required at this time. DISCHARGE: At this time pt. is stable for d/c to home. Will provide printed patient care instructions, and any necessary prescriptions. Care plan and follow up instructions have been discussed with the patient prior to discharge. Patient is aware of elevated BUN/creatinine reports he has an upcoming appointment with nursing home manager. Patient to take medication as directed, minor anemia however no oral medication can be administered. Patient to continue taking IV antibiotics through central lines at home. Re-bandaged wounds. Contacted Dr. Corley's office and he is out of town however will be back tomorrow. Patient to follow-up with Dr. Ruiz EKG Diagnostic Results Rate: normal Rhythm: NSR ST Segments: no acute changes Other Impression No acute ST changes Chest X-Ray Diagnostic Results Chest X-Ray Diagnostic Results : Chest X-Ray Ordered: Yes # of Views/Limited/Complete: 1 View Indication: Other EP Interpretation: Yes PA Xray: Interpretation reviewed, by supervising MD, and agrees with findings. Interpretation: no consolidation, no effusion, no pneumothorax Impression: No acute disease Electronically Signed by: Olga Raymundo PA-C Last Vital Signs Date Time Temp Pulse Resp B/P (MAP) Pulse Ox O2 Delivery O2 Flow Rate FiO2 05/03/19 16:05 98.1 17 155/93 99 Room Air 05/03/19 15:54 92 Disposition: HOME, SELF-CARE Condition: Stable Referrals: Humberto Medina MD (PCP) Patient Instructions: Acute Kidney Injury, Skin Ulcer Additional Instructions: Follow-up with your nursing home manager regarding your elevated BUN and creatinine. Continue taking antibiotics for chronic foot ulcer. At this time bleeding has stopped, see your foot doctor Dr. Corley as he with back in town tomorrow. If worsening symptoms return to the emergency room Olga Cespedes May 03, 2019 17:55
== END 2019-05-03 17:55 | disposition home or self-care (01) ==
LOC: EMR 16:30
DX: M25.074 Hemarthrosis, right foot (principal); M86.60 Other chronic osteomyelitis, unspecified site; E11.22 Type 2 diabetes mellitus with diabetic chronic kidney disease; I12.9 Hypertensive chronic kidney disease with stage 1 through stage 4 chronic kidney disease, or unspecified chronic kidney disease; N18.9 Chronic kidney disease, unspecified; Z98.84 Bariatric surgery status; Z91.013 Allergy to seafood; Z89.431 Acquired absence of right foot
CPT/HCPCS: 36415; 71045; 73630; 80053; 81003; 83605; 84484; 85025; 85610; 85730; 86850; 86900; 86901; 87040; 93005; 96360; 99284; J7030

== ENCOUNTER 2019-05-21 13:57 | Outpatient (RCR) | payer MEDICARE, OTHER | END 2019-06-15 | disposition home or self-care (01) | LOC: WCC 13:57 | DX: L97.512 Non-pressure chronic ulcer of other part of right foot with fat layer exposed (principal); E11.621 Type 2 diabetes mellitus with foot ulcer; E11.42 Type 2 diabetes mellitus with diabetic polyneuropathy; E08.42 Diabetes mellitus due to underlying condition with diabetic polyneuropathy; G99.0 Autonomic neuropathy in diseases classified elsewhere; Z98.84 Bariatric surgery status; E11.9 Type 2 diabetes mellitus without complications; I10 Essential (primary) hypertension | CPT/HCPCS: 29445; 87070; 87181; 87205; G0463 ==

== ENCOUNTER 2019-06-18 14:26 | Outpatient (RCR) | payer MEDICARE, OTHER | END 2019-07-16 | disposition home or self-care (01) | LOC: WCC 14:26 | DX: L97.512 Non-pressure chronic ulcer of other part of right foot with fat layer exposed (principal); E11.621 Type 2 diabetes mellitus with foot ulcer; E11.42 Type 2 diabetes mellitus with diabetic polyneuropathy; E08.42 Diabetes mellitus due to underlying condition with diabetic polyneuropathy; G99.0 Autonomic neuropathy in diseases classified elsewhere | CPT/HCPCS: 11043; G0463 ==

== ENCOUNTER 2019-07-30 13:06 | Outpatient (RCR) | payer MEDICARE, OTHER | END 2019-08-15 | disposition home or self-care (01) | LOC: WCC 13:06 | DX: L97.512 Non-pressure chronic ulcer of other part of right foot with fat layer exposed (principal); E11.621 Type 2 diabetes mellitus with foot ulcer; I10 Essential (primary) hypertension; E66.01 Morbid (severe) obesity due to excess calories; E11.42 Type 2 diabetes mellitus with diabetic polyneuropathy; E08.42 Diabetes mellitus due to underlying condition with diabetic polyneuropathy; G99.0 Autonomic neuropathy in diseases classified elsewhere | CPT/HCPCS: 11043; G0463 ==

== ENCOUNTER 2019-08-20 14:25 | Outpatient (RCR) | payer MEDICARE, OTHER | END 2019-09-15 | disposition home or self-care (01) | LOC: WCC 14:25 | DX: M86.171 Other acute osteomyelitis, right ankle and foot (principal); E11.621 Type 2 diabetes mellitus with foot ulcer; I10 Essential (primary) hypertension; E66.01 Morbid (severe) obesity due to excess calories; E11.42 Type 2 diabetes mellitus with diabetic polyneuropathy; E08.42 Diabetes mellitus due to underlying condition with diabetic polyneuropathy; G99.0 Autonomic neuropathy in diseases classified elsewhere; Z91.19 Patient's noncompliance with other medical treatment and regimen; L97.512 Non-pressure chronic ulcer of other part of right foot with fat layer exposed | CPT/HCPCS: 11043; 87070; 87181; 87205; G0463 ==

== ENCOUNTER → 2019-10-08 | Outpatient (CLI) | payer MEDICARE, OTHER | END | disposition home or self-care (01) | LOC: LAB 14:13 | DX: B99.9 Unspecified infectious disease (principal) | CPT/HCPCS: 36415; 85651; 86140; 87070; 87181; 87205 ==

== ENCOUNTER 2019-10-22 13:28 | Outpatient (RCR) | payer MEDICARE, OTHER | END 2019-11-15 | disposition home or self-care (01) | LOC: WCC 13:28 | DX: E11.621 Type 2 diabetes mellitus with foot ulcer (principal); E08.42 Diabetes mellitus due to underlying condition with diabetic polyneuropathy; Z91.19 Patient's noncompliance with other medical treatment and regimen; M86.671 Other chronic osteomyelitis, right ankle and foot; Z98.84 Bariatric surgery status; E11.9 Type 2 diabetes mellitus without complications; I10 Essential (primary) hypertension; L97.512 Non-pressure chronic ulcer of other part of right foot with fat layer exposed; G99.0 Autonomic neuropathy in diseases classified elsewhere | CPT/HCPCS: G0463 ==

== ENCOUNTER 2019-11-19 13:33 | Outpatient (RCR) | payer MEDICARE, OTHER | END 2019-12-16 | disposition home or self-care (01) | LOC: WCC 13:33 | DX: L97.512 Non-pressure chronic ulcer of other part of right foot with fat layer exposed (principal); E11.621 Type 2 diabetes mellitus with foot ulcer; I10 Essential (primary) hypertension; E66.01 Morbid (severe) obesity due to excess calories; E11.42 Type 2 diabetes mellitus with diabetic polyneuropathy; E08.42 Diabetes mellitus due to underlying condition with diabetic polyneuropathy; G99.0 Autonomic neuropathy in diseases classified elsewhere | CPT/HCPCS: 11043; G0463 ==

== ENCOUNTER 2019-12-17 11:39 | Outpatient (RCR) | payer MEDICARE, OTHER | END 2020-01-15 | disposition home or self-care (01) | LOC: WCC 11:39 | DX: E11.621 Type 2 diabetes mellitus with foot ulcer (principal); Z91.19 Patient's noncompliance with other medical treatment and regimen; E08.42 Diabetes mellitus due to underlying condition with diabetic polyneuropathy; M86.671 Other chronic osteomyelitis, right ankle and foot; I10 Essential (primary) hypertension; Z98.84 Bariatric surgery status; G99.0 Autonomic neuropathy in diseases classified elsewhere; L97.512 Non-pressure chronic ulcer of other part of right foot with fat layer exposed; E11.42 Type 2 diabetes mellitus with diabetic polyneuropathy | CPT/HCPCS: 11043; 87070; 87181; 87205 ==

== ENCOUNTER → 2019-12-31 | Outpatient (CLI) | payer MEDICARE, OTHER ==
[2019-12-31 14:05] LABS: BASOPHILS % (AUTO) 0.8 % (0.0-2.0); EOSINOPHILS % (AUTO) 1.4 % (0.0-3.0); HEMATOCRIT 34.6 % (42.0-52.0); HEMOGLOBIN 10.5 G/DL (14.2-18.0); LYMPHOCYTES % (AUTO) 21.3 % (20.0-45.0); MEAN CORPUSCULAR VOLUME 84 FL (80-99); MONOCYTES % (AUTO) 8.2 % (1.0-10.0); NEUTROPHILS % (AUTO) 68.3 % (45.0-75.0); PLATELET COUNT 314 K/UL (150-450); RED BLOOD COUNT 4.13 M/UL (4.70-6.10); RED CELL DISTRIBUTION WIDTH 14.8 % (11.6-14.8); WHITE BLOOD COUNT 6.8 K/UL (4.8-10.8)
[2019-12-31 14:20] LABS: ALBUMIN 2.9 G/DL (3.4-5.0); ALBUMIN/GLOBULIN RATIO 0.6 (1.0-2.7); BILIRUBIN,TOTAL 0.2 MG/DL (0.2-1.0); CALCIUM 8.5 MG/DL (8.5-10.1); CREATININE 2.9 MG/DL (0.55-1.30)
[2019-12-31 14:25] LABS: POTASSIUM 6.1 MMOL/L (3.5-5.1)
== END | disposition home or self-care (01) ==
LOC: LAB 13:45
DX: B99.9 Unspecified infectious disease (principal)
CPT/HCPCS: 36415; 80053; 85025; 85651; 86140

== ENCOUNTER 2020-01-21 14:16 | Outpatient (RCR) | payer MEDICARE, OTHER | END 2020-02-15 | disposition home or self-care (01) | LOC: WCC 14:16 | DX: E11.621 Type 2 diabetes mellitus with foot ulcer (principal); Z91.19 Patient's noncompliance with other medical treatment and regimen; E08.42 Diabetes mellitus due to underlying condition with diabetic polyneuropathy; M86.671 Other chronic osteomyelitis, right ankle and foot; I10 Essential (primary) hypertension; Z98.84 Bariatric surgery status; L02.611 Cutaneous abscess of right foot; Z79.899 Other long term (current) drug therapy; Z91.013 Allergy to seafood | CPT/HCPCS: 10060; 11043; 87070; 87181; 87205 ==

== ENCOUNTER 2020-02-18 13:29 | Outpatient (RCR) | payer MEDICARE, OTHER | END 2020-03-16 | disposition home or self-care (01) | LOC: WCC 13:29 | DX: E11.621 Type 2 diabetes mellitus with foot ulcer (principal); Z91.19 Patient's noncompliance with other medical treatment and regimen; E08.42 Diabetes mellitus due to underlying condition with diabetic polyneuropathy; M86.671 Other chronic osteomyelitis, right ankle and foot; Z98.84 Bariatric surgery status; I10 Essential (primary) hypertension; Z79.899 Other long term (current) drug therapy | CPT/HCPCS: 11043 ==

== ENCOUNTER 2020-03-17 09:23 | Outpatient (RCR) | payer MEDICARE, OTHER | END 2020-04-16 | disposition home or self-care (01) | LOC: WCC 09:23 | DX: E11.621 Type 2 diabetes mellitus with foot ulcer (principal); I10 Essential (primary) hypertension; E66.01 Morbid (severe) obesity due to excess calories; E11.42 Type 2 diabetes mellitus with diabetic polyneuropathy; E08.42 Diabetes mellitus due to underlying condition with diabetic polyneuropathy; G99.0 Autonomic neuropathy in diseases classified elsewhere; Z91.19 Patient's noncompliance with other medical treatment and regimen; M86.671 Other chronic osteomyelitis, right ankle and foot | CPT/HCPCS: 11043; 11046; G0463 ==

== ENCOUNTER 2020-04-21 13:43 | Outpatient (RCR) | payer MEDICARE, OTHER | END 2020-05-17 | disposition home or self-care (01) | LOC: WCC 13:43 | DX: L97.512 Non-pressure chronic ulcer of other part of right foot with fat layer exposed (principal); E11.621 Type 2 diabetes mellitus with foot ulcer; E11.42 Type 2 diabetes mellitus with diabetic polyneuropathy; E08.42 Diabetes mellitus due to underlying condition with diabetic polyneuropathy; G99.0 Autonomic neuropathy in diseases classified elsewhere; I10 Essential (primary) hypertension; Z98.84 Bariatric surgery status | CPT/HCPCS: 11043; 11046 ==

== ENCOUNTER 2020-05-19 12:41 | Outpatient (RCR) | payer MEDICARE, OTHER | END 2020-06-14 | disposition home or self-care (01) | LOC: WCC 12:41 | DX: E11.621 Type 2 diabetes mellitus with foot ulcer (principal); Z91.19 Patient's noncompliance with other medical treatment and regimen; E08.42 Diabetes mellitus due to underlying condition with diabetic polyneuropathy; M86.671 Other chronic osteomyelitis, right ankle and foot | CPT/HCPCS: 11043 ==